=== PATIENT | female | born 1950 | race Caucasian/White ===

== ENCOUNTER 2019-11-13 | Emergency (ER) | payer MEDICARE ==
[~2019-11-13] MED LIST: ACCURETIC OR; ACCURETIC PO; ALENDRONATE35 MG PO; AMBIEN5 MG OR; ASA LO-DOSE81 MG OR; ASPIRIN LOW DOS81 M2 PO; ATIVAN1 MG OR; BONIVA150 MG OR; CHANTIX0.5 MG OR; CLARINEX5 MG OR; FE GLUCONATE325 MG OR; GABAPENTIN300 MG PO; LIPITOR40 MG OR; LORAZEPAM0.5 MG PO; LORTAB 10-325 M1 TAB PO; MEDDOSEPAK PO; METO50TA52 PO; NORCO1 TA1 PO; PLAVIX75 MG OR; PLAVIX75 MG PO; PREDNISONE20 MG PO; PREMARIN0.625 MG OR; PRILOSEC OTC20 MG OR; PROAIR HFA IN; PROBENECID/COLC1 TAB PO; TOPROL XL50 MG OR; TRIAMT/HCTZ1 CAP OR; UNIVASC7.5 MG OR; WELLBUTRIN75 MG OR; ZITHROMAX250 MG PO; ZOCOR40 MG OR
[2019-11-13 11:50] LABS: HEMATOCRIT 26.9 % (37.0-47.0); HEMOGLOBIN 8.3 g/dl (12.0-16.0); IMMATURE GRANULOCYTES 0.4 % (0.0-5.0); MEAN CORPUSCULAR HGB 27.2 pG CALC (26.0-32.0); MEAN CORPUSCULAR HGB CONC 30.9 g/L CALC (32.0-36.0); NEUT# 7.82 thou/uL (2.00-7.15); RED BLOOD COUNT 3.05 mill/uL (4.20-5.60); RED CELL DISTRI WIDTH 14.6 % (11.5-15.5)
[2019-11-13 11:51] LABS: MEAN CELL VOLUME 88.2 fL CALC (80.0-100.0)
[2019-11-13 12:03] LABS: ALBUMIN 3.6 g/dL (3.2-5.0); ALKALINE PHOSPHATASE 81 u/l (38-126); ANION GAP 15 (6-22 (CALC)); BUN 23 mg/dL (8-23); BUN/CREATININE RATIO 12 (12-20 (CALC)); CARBON DIOXIDE 22 mmol/l (22-30); CHLORIDE 106 mmol/l (95-108); CREATININE 1.9 mg/dL (0.5-1.0); GFR 26 ML/MIN (>=60 (CALC)); GFR FOR AFR.AMER. 32 ML/MIN (>=60 (CALC)); POTASSIUM 4.8 mmol/l (3.5-5.1); SGOT/AST 25 u/l (9-36); SODIUM 139 mmol/l (137-146); TOTAL PROTEIN 6.6 g/dL (6.3-8.2)
[2019-11-13 12:06] LABS: BILIRUBIN, TOTAL 0.2 mg/dL (0.0-1.4)
[2019-11-13] MEDS ORDERED: BACLOFEN10 MG PO (12:33)
[2019-11-13] MEDS ORDERED: AMOXICILLIN875 MG PO (13:21)
[2019-11-13] MEDS ORDERED: ZITHROMAX500 MG PO (13:21)
== END 2019-11-13 13:43 | disposition home or self-care (01) ==
DX: J18.9 Pneumonia, unspecified organism (principal); D50.0 Iron deficiency anemia secondary to blood loss (chronic); J44.0 Chronic obstructive pulmonary disease with (acute) lower respiratory infection; J90 Pleural effusion, not elsewhere classified; E04.1 Nontoxic single thyroid nodule; I10 Essential (primary) hypertension; I25.10 Atherosclerotic heart disease of native coronary artery without angina pectoris; I73.9 Peripheral vascular disease, unspecified; F17.200 Nicotine dependence, unspecified, uncomplicated

== ENCOUNTER 2019-11-23 | Emergency (ER) | payer MEDICARE ==
[~2019-11-23] MED LIST changes: +AMOXICILLIN875 MG PO; +BACLOFEN10 MG PO; +ZITHROMAX500 MG PO
[2019-11-23] MEDS ORDERED: FERR SULFATE325 MG PO (10:47)
[2019-11-23] MEDS ORDERED: ALLOPURINOL100 MG PO (10:56)
[2019-11-23] MEDS ORDERED: POTASSIUM99 MG PO (10:57)
[2019-11-23] MEDS ORDERED: STOOL SOFTE1 PO (10:57)
[2019-11-23] MEDS ORDERED: GLUCOSAMINE PO (10:57)
[2019-11-23] MEDS ORDERED: COQ10200 MG PO (10:58)
[2019-11-23] MEDS ORDERED: OMEPRAZOLE10 MG PO (10:58)
[2019-11-23 11:03] LABS: HEMATOCRIT 26.9 % (37.0-47.0); HEMOGLOBIN 8.3 g/dl (12.0-16.0); IMMATURE GRANULOCYTES 0.3 % (0.0-5.0); MEAN CELL VOLUME 85.9 fL CALC (80.0-100.0); MEAN CORPUSCULAR HGB 26.5 pG CALC (26.0-32.0); MEAN CORPUSCULAR HGB CONC 30.9 g/L CALC (32.0-36.0); NEUT# 5.95 thou/uL (2.00-7.15); RED BLOOD COUNT 3.13 mill/uL (4.20-5.60)
[2019-11-23 11:23] LABS: ALBUMIN 3.8 g/dL (3.2-5.0); BILIRUBIN, TOTAL 0.2 mg/dL (0.0-1.4); CREATININE 1.9 mg/dL (0.5-1.0); POTASSIUM 4.2 mmol/l (3.5-5.1); TOTAL PROTEIN 7.2 g/dL (6.3-8.2)
== END 2019-11-23 15:55 | disposition short-term general hospital (02) ==
PROVIDERS: Emergency Medicine
DX: J18.9 Pneumonia, unspecified organism (principal); R91.8 Other nonspecific abnormal finding of lung field; J44.0 Chronic obstructive pulmonary disease with (acute) lower respiratory infection; I10 Essential (primary) hypertension; I25.10 Atherosclerotic heart disease of native coronary artery without angina pectoris; F17.200 Nicotine dependence, unspecified, uncomplicated